=== PATIENT | female | born 1955 | race Caucasian/White ===

== ENCOUNTER 2016-12-31 17:46 | Emergency (ER) | payer BC, MEDICARE, OTHER ==
[~2016-12-31] VITALS: Ht 154.9 cm; Wt 96.2 kg
[2016-12-31] MEDS ORDERED: ONDANSETRON 2MG/ML, 2ML IVPush ONE (18:30)
[2016-12-31] MEDS ORDERED: SODIUM CHLORIDE FLUSH 10ML SYR IVF ONE (18:30)
[2016-12-31 18:50] LABS: PATH.CAST-FLAG NOT PRESENT; SPERM-FLAG NOT PRESENT; SRC-FLAG NOT PRESENT; XTAL-FLAG NOT PRESENT; YLC-FLAG NOT PRESENT
[2016-12-31 18:57] LABS: BLOOD UREA NITROGEN 11 mg/dL (7-18)
[2016-12-31 19:04] LABS: ASPARTATE AMINO TRANSFERASE 65 U/L (15-37)
[2016-12-31 19:05] LABS: IS PT STATUS REG ER OR PRE ER? YES
[2016-12-31] MEDS ORDERED: ONDANSETRON 2MG/ML, 2ML ONE (19:25)
[2016-12-31] MEDS ORDERED: FAMOTIDINE 20 MG/2 ML ONE (19:25)
[2016-12-31] MEDS ORDERED: PROCHLORPERAZINE 5 MG/ML, 2ML ONE (19:25)
[2016-12-31] MEDS ORDERED: KETOROLAC 30 MG/1 ML ONE (19:26)
[2016-12-31] MEDS ORDERED: PROCHLORPERAZINE 5 MG/ML, 2ML IVPush ONE (19:30)
[2016-12-31] MEDS ORDERED: KETOROLAC 30 MG/1 ML IVPush ONE (19:30)
[2016-12-31] MEDS ORDERED: FAMOTIDINE 20 MG/2 ML IVPush ONE (19:30)
[2016-12-31 20:38] VITALS: BP 154/79
[2016-12-31] MEDS ORDERED: HYDR2TAB13 PO (20:39)
[2016-12-31] MEDS ORDERED: TRAZ50TA18 PO (20:40)
[2016-12-31] MEDS ORDERED: ZOLP-413 PO (20:40)
[2016-12-31] MEDS ORDERED: CLON0.5T PO (20:41)
== END 2016-12-31 20:43 | disposition left against medical advice (07) ==
LOC: ED 20:37
DX: R50.9 Fever, unspecified (principal); R51 Headache
CPT/HCPCS: 36415; 80053; 81001; 84484; 85025; 96374; 96375; 99284; J0780; J1885; J2405; S0028